=== PATIENT | female | born 1970 | race Caucasian/White ===

== ENCOUNTER 2019-12-18 13:04 | Emergency (ER) | payer OTHER, SELFPAY ==
--- NOTE | ~2019-12-18 | XR_ITS ---
EXAMINATION: XR chest 1V EXAM DATE: 12/18/2019 15:36 INDICATION: Weakness, dizziness. Nausea. TECHNIQUE: Portable AP frontal chest x-ray was obtained. There is no prior study for comparison. FINDINGS: The lungs are clear. There are no pleural effusions. The cardiomediastinal silhouette is within normal limits. There is no pneumothorax suspected. The bones and soft tissues are unremarkab le. IMPRESSION: No acute cardiopulmonary findings. Reviewed, dictated and finalized at location A.
--- NOTE | ~2019-12-18 | CT_ITS ---
EXAMINATION: CT brain wo con EXAM DATE: 12/18/2019 15:32 INDICATION: Weakness and dizziness. Nausea and fall. TECHNIQUE: Spiral CT of the head was performed without contrast. Axial, coronal and sagittal images were reviewed. The dose-length product (DLP) for this examination was 605.33 mGy-cm. The exposure w as tailored according to patient size, and iterative reconstruction (ASIR) was used as additional dos e reduction technique. There is no prior study for comparison. FINDINGS: There is no acute intraparenchymal hemorrhage. No evidence of intraparenchymal brain mass lesion. No evidence of acute infarction. There is no mass effect or midline shift. The ventricles are normal in size. There are no extra-axial collections. There are no acute calvarial fractures. T he orbits are unremarkable. Several scattered subcutaneous regions probably sebaceous cysts. The vis ualized sinuses and mastoid air cells are well aerated. There is a right-sided choroidal fissure cy st. IMPRESSION: 1. No acute intracranial findings. Reviewed, dictated and finalized at location A.
[2019-12-18 13:28] VITALS: BP 137/90; PULSE 85; RESP 16; TEMP 36.9; O2SAT 100
--- NOTE | 2019-12-18 13:34 | ECG_ITS ---
Measurements Intervals [place] Rate: 78 P: 56 AK: 162 QRS: 256 QRSD: 105 T: 41 QT: 389 QTc: 444 Interpretive Statements SINUS RHYTHM RIGHT AXIS DEVIATION LOW QRS VOLTAGE IN PRECORDIAL LEADS INCOMPLETE RIGHT BUNDLE BRANCH BLOCK MINIMAL Q WAVES- INFERIOR LEADS BORDERLINE T WAVE ABNORMALITY- ANTERIOR LEADS BASELINE ARTIFACT- I, II, AVR, AVL BORDERLINE ECG Electronically Signed On 12-18-2019 15:52:01 CDT by Randy Saez D.O.
[2019-12-18 13:49] LABS: Basophils Absolute Auto 0.1 K/mm3 (0.0-0.1); Basophils Percent Auto 0.5 % (0.2-1.2); Eosinophils Percent Auto 0.1 % (0-4.4); Hematocrit 37.1 % (37.0-47.0); Hemoglobin 13.3 g/dL (12.0-15.0); Immature Granulocyte Absolute 0.04 K/mm3 (0.00-0.031); Immature Granulocyte Percent A 0.3 % (0-0.5); Lymphocytes Absolute Auto 2.13 K/mm3 (0.9-3.2); Lymphocytes Percent Auto 18.5 % (18.3-44.2); Mean Corpuscular HGB Conc 35.8 g/dl (32-36); Mean Corpuscular Hemoglobin 31.4 pg (26-34); Mean Corpuscular Volume 87.7 fl (80-100); Mean Platelet Volume 9.8 fl (7.4-10.4); Monocytes Absolute Auto 0.6 K/mm3 (0.1-0.6); Monocytes Percent Auto 5.6 % (2.6-8.5); Neutrophils Absolute Auto 8.7 K/mm3 (1.3-6.7); Platelet Count Result 365 k/mm3 (150-375); Red Blood Count 4.23 M/mm3 (4.2-5.4); White Blood Count 11.5 K/mm3 (4.5-10.0)
[2019-12-18 14:02] LABS: Anion Gap 8 mmol/L (8-16); Blood Urea Nitrogen 7 mg/dL (7-17); Calcium 9.4 mg/dL (8.4-10.2); Carbon Dioxide 23 mmol/L (22-30); Chloride 95 mmol/L (98-107); Estimated Glomerular Filt Rate > 60; Glucose 109 mg/dL (65-105); Sodium 126 mmol/L (137-145)
[2019-12-18 14:14] LABS: Troponin I < 0.012 ng/mL (0.000-0.034)
[2019-12-18 14:40] VITALS: BP 129/85; BP 129/92; PULSE 78
[2019-12-18 14:41] VITALS: BP 124/86; PULSE 85
[2019-12-18 14:43] VITALS: PULSE 77
--- NOTE | 2019-12-18 14:54 | ED.SYNCOPE ---
HPI - Syncope General Chief Complaint: Syncope Stated Complaint: sent by MD for bloodwork Time Seen by Provider: 12/18/19 14:30 Source: patient Mode of arrival: ambulatory Limitations: no limitations History of Present Illness HPI narrative: This patient is 49 year old female with history of hypothyroid who presents for evaluation of syncopal episode. Patient states last night she developed nausea and dizziness. She reports she lean her head forward and then she woke up on the ground. Her son told her she had 10 seconds of loss of consciousness. She states when she was attempting to get up she became warm and diaphoretic. She states she felt fine until this morning. This morning she had an episode of nausea and she became warm and diaphoretic again. She denies chest pain, sob , palpitations. She denies having any symptoms now. Related Data Home Medications Medication Instructions Recorded Confirmed levothyroxine 12/18/19 Allergies Allergy/AdvReac Type Severity Reaction Status Date / Time No Known Allergies Allergy Verified 12/18/19 14:44 Review of Systems Review of Systems: All systems reviewed & are unremarkable except as noted in HPI and below Constitutional: Constitutional: Denies chills and Denies fever(s) Cardiovascular: Cardiovascular: Denies chest pain and Denies radiating jaw, neck or arm pain Respiratory: Respiratory: Denies cough, Denies dyspnea and Denies wheezing Gastrointestinal: Gastrointestinal: Denies abdominal pain, Reports nausea and Denies vomiting Neurologic: Reports syncope and Denies headache(s) PMFSH Past Medical History Medical History (Updated 12/18/19 @ 17:07 by Enma Rudd MD) Hypothyroid Surgical History Surgical History (Updated 12/18/19 @ 17:00 by Enma Rudd MD) No significant past surgical history Social History Social History (Updated 12/18/19 @ 14:59 by nEma Rudd MD) Smoking status: Current every day smoker Alcohol intake: current Substance use: never Gender identity (if verbalized by the patient): Female Exam Narrative: Exam Narrative: GENERAL: Well-appearing, well-nourished, and in no acute distress. HEAD: Normocephalic, atraumatic EYES: PERRLA and EOMI, conjunctiva clear without discharge THROAT:Mucous membranes moist NECK: Supple, without lymphadenopathy or mass RESPIRATORY: No respiratory distress, Airway patent, Respirations non-labored, Clear to auscultation without rales, rhonchi or wheeze HEART: Regular rate and rhythm. No murmur heard. Normal peripheral pulses. ABDOMEN: Soft, nontender, nondistended, normal active bowel sounds. No masses. No rebound or guarding, No organomegaly. EXTREMITIES: No edema, normal strength with full range of motion. SKIN: Warm, dry, normal color without rash NEURO: Alert and oriented x3. CN 2-12 grossly intact. No focal deficits. PSYCH: Normal mood and affect. Course Reevaluation(s) Reevaluation #1: I Discussed with patient labs show hyponatremia and possible low thyroid. She states she is taking her thyroid medication. I discussed the recommendation that she should be admitted. She states she understands the necessity and risk of not staying, but she is unable to stay at this time because she has a son at home. Date: 12/18/19 Time: 17:03 Consultations Consultation #1: I discussed case with Dr. Baer. He recommends admission for evaluation of syncope. He states patient is noncompliant Date: 12/18/19 Time: 17:00 Vital Signs Vital signs: Vital Signs Temperature 98.5 F 12/18/19 13:28 Pulse Rate 85 12/18/19 13:28 Respiratory Rate 16 12/18/19 13:28 Blood Pressure 137/90 12/18/19 13:28 Pulse Oximetry 100 12/18/19 13:28 Temperature 98.5 F 12/18/19 13:28 Pulse Rate 74 12/18/19 17:16 Respiratory Rate 20 12/18/19 17:16 Blood Pressure 136/93 H 12/18/19 17:16 Pulse Oximetry 100 12/18/19 17:16 MDM - Syncope Lab Data Attestati
[2019-12-18 15:21] LABS: Add Urine Microscopic? YES; Appearance Urine Cloudy (Clear); Bacteria Urine Trace /hpf; Bilirubin Urine Negative (Negative); Blood Urine Negative (Negative); Color Urine Yellow (Yellow); Glucose Urine UA Negative (Negative); Ketones Urine 1+ mg/dL (Negative); Leukocyte Esterase Ur Trace LEU/UL (Negative); Mucus Urine Rare /lpf; Nitrate Urine Negative (Negative); Protein Urine Negative (Negative); Specific Grav Ur 1.017 (1.001-1.035); Squamous Epithelial Cell Urine Many /hpf (Few); Urobilinogen Urine Negative mg/dL (<2.0); WBC Urine 0-3 /hpf
[2019-12-18] MEDS: ONDANSETRON INJ 4 MG/2 ML VIAL IV PUSH (15:40)
[2019-12-18] MEDS: SODIUM CHLORIDE 0.9% IV 1,000 ML 999 ML IV CONT (15:40)
[2019-12-18 17:08] LABS: Free T4 Free Thyroxine Reflex 1.05 ng/dL (0.78-2.19)
[2019-12-18 17:16] VITALS: BP 136/93; PULSE 74; RESP 20; O2SAT 100
[2019-12-18 18:03] LABS: Total Triiodothyronine (T3) 0.53 NG/ML (0.97-1.69)
== END 2019-12-18 17:19 | disposition left against medical advice (07) ==
PROVIDERS: Emergency Medicine; Emergency Provider General Practice; PCP Family Medicine
DX: R55 Syncope and collapse (principal); E87.1 Hypo-osmolality and hyponatremia; E03.9 Hypothyroidism, unspecified; F17.200 Nicotine dependence, unspecified, uncomplicated; I45.10 Unspecified right bundle-branch block; R94.31 Abnormal electrocardiogram [ECG] [EKG]
CPT/HCPCS: 36415; 70450; 71045; 80048; 81001; 81025; 83735; 84439; 84443; 84480; 84484; 85025; 93005; 96361; 96374; 99284; J2405; J7030

== ENCOUNTER → 2021-03-03 15:53 | Outpatient (CLI) | payer OTHER, SELFPAY ==
--- NOTE | ~2021-03-03 | MM_ITS ---
EXAMINATION: MM screening monica BI w uzma HISTORY: Screening TECHNIQUE: Craniocaudal and mediolateral oblique 3-D tomosynthesis images were obtained and synthetic 2-D images were generated. CAD analysis was submitted and interpreted. COMPARISON: No prior mammogram is available for comparison at this institution. BREAST PARENCHYMAL COMPOSITION: There are scattered areas of fibroglandular density. FINDINGS: There are bilateral breast asymmetries in the upper inner quadrant of the right breast and lower inner quadrant of the left breast. There are no suspicious calcifications. No architectural dis tortion. IMPRESSION: 1. Bilateral breast asymmetries. 2. Additional mammographic views and possible breast ultrasound are recommended. BI-RADS Category 0: Incomplete: Needs additional imaging evaluation. Reviewed, dictated and finalized at location A. IMPRESSION: 1. Bilateral breast asymmetries. 2. Additional mammographic views and possible breast ultrasound are recommended . BI-RADS Category 0: Incomplete: Needs additional imaging evaluation.
== END ==
PROVIDERS: Visit Provider Student in an Organized Health Care Education/Training Program
DX: Z12.31 Encounter for screening mammogram for malignant neoplasm of breast (principal); R92.8 Other abnormal and inconclusive findings on diagnostic imaging of breast
CPT/HCPCS: 77063; 77067

== ENCOUNTER → 2021-08-02 07:43 | Outpatient (CLI) | payer OTHER, SELFPAY ==
--- NOTE | ~2021-08-02 | MMUS_ITS ---
EXAMINATION: MM diagnostic monica BI w uzma, US breast BI limited HISTORY: Follow-up breast asymmetries TECHNIQUE: Additional 3-D tomosynthesis images of the breasts were performed and synthetic 2-D images were generated. CAD analysis was submitted and interpreted. High resolution complete bilateral breas t ultrasound was performed. COMPARISON: 03/03/2021 BREAST PARENCHYMAL COMPOSITION: The breasts are heterogenously dense, which may obscure small masses FINDINGS: MAMMOGRAPHIC FINDINGS: There are no suspicious masses, calcifications or architectural distortion in either breast to sugges t malignancy. ULTRASOUND: Complete bilateral US of all 4 quadrants of the breasts and retroareolar region was reviewed. Right breast ultrasound: Normal heterogeneous echotexture without focal solid or cystic mass. Left breast ultrasound: At 11:00, 5 cm from the nipple there is an oval circumscribed hypoechoic mass measuring 6 mm with parallel orientation, no internal vascularity and no significant posterior featu res, likely benign. IMPRESSION: 1. No evidence for malignancy in the right breast. Probably benign 6 mm left breast mass at 11:00, 5 cm from the nipple. 2. Recommend 6 month follow-up limited left breast ultrasound BI-RADS category 3, probably benign findings. Reviewed, dictated and finalized at location A. IMPRESSION: 1. No evidence for malignancy in the right breast. Probably benign 6 mm left br east mass at 11:00, 5 cm from the nipple. 2. Recommend 6 month follow-up limited left breast ultrasound BI-RADS category 3, probably benign findings.
== END ==
PROVIDERS: PCP Student in an Organized Health Care Education/Training Program; Visit Provider Student in an Organized Health Care Education/Training Program
DX: R92.8 Other abnormal and inconclusive findings on diagnostic imaging of breast (principal)
CPT/HCPCS: 76642; 77062; 77066; G0279

== ENCOUNTER 2021-08-17 10:26 | Emergency (ER) | payer OTHER, SELFPAY ==
[2021-08-17 10:34] VITALS: BP 135/85; PULSE 90; RESP 18; TEMP 36.8; O2SAT 100
--- NOTE | 2021-08-17 12:18 | ED.DENTAL ---
HPI - Dental/Oral General Chief complaint: Dental/Oral Stated complaint: toothache Time Seen by Provider: 08/17/21 12:03 Source: patient History of Present Illness HPI Narrative: Patient presents with right upper molar pain. Been present for approximately 24 hours she has a dentist appointment tomorrow morning she woke up and noticed a lot of swelling in her face she was unsure what to do so she came to the ER for further evaluation. She denies any fevers or difficulty swallowing denies any cough or congestion. Denies any nausea vomiting or diarrhea. Her pain is primarily in her right upper jaw achy, constant worse with moving her jaw, radiates across her face. Related Data Home Medications Medication Instructions Recorded Confirmed levothyroxine 300 mcg PO Q48H 08/17/21 08/17/21 Allergies Allergy/AdvReac Type Severity Reaction Status Date / Time No Known Allergies Allergy Verified 08/17/21 11:12 Review of Systems Review of Systems: CONSTITUTIONAL: Denies fever, chills, or sweats. EYES: Denies visual changes, redness, or discharge. ENT: Denies rhinorrhea, congestion, sore throat, or otalgia. CARDIOVASCULAR: Denies chest pain, palpitations, or edema. RESPIRATORY: Denies cough or dyspnea. GASTROINTESTINAL: Denies abdominal pain, nausea, vomiting, or diarrhea. GENITOURINARY: Denies dysuria or hematuria. SKIN: Denies rash or itching. MUSCULOSKELETAL: Denies back pain, joint pain, or myalgia. NEUROLOGIC: Denies headache, numbness, dizziness, or weakness. PSYCHIATRIC: Denies anxiety or depression. All systems reviewed & are unremarkable except as noted in HPI and below PMFSH Past Medical History Medical History (Updated 08/17/21 @ 12:22 by David Ghosh MD) Dental abscess Hypothyroid Surgical History Surgical History No significant past surgical history Social History Social History Smoking status: Current every day smoker Alcohol intake: current Substance use: never Gender identity (if verbalized by the patient): Female Exam Narrative: GENERAL: Well-appearing, well-nourished, and in no acute distress. HEAD: Normocephalic, atraumatic. EYES: PERRLA and EOMI. ENT: Nares clear, no rhinorrhea or epistaxis. Mucous membranes moist. Fractured teeth on the right upper molars with tenderness palpation no focal fluid collections no purulent drainage there is facial edema noted on the right face. NECK: Supple. No masses. No JVD EXTREMITIES: Normal range of motion. No edema. SKIN: Warm, dry, no rash. NEURO: No focal deficits. Alert and oriented x3. PSYCH: Normal mood and affect. Course Vital Signs Vital signs: Vital Signs Temperature 36.8 C 08/17/21 10:34 Pulse Rate 90 08/17/21 10:34 Respiratory Rate 18 08/17/21 10:34 Blood Pressure 135/85 08/17/21 10:34 Pulse Oximetry 100 08/17/21 10:34 Temperature 36.8 C 08/17/21 10:34 Pulse Rate 93 08/17/21 12:50 Respiratory Rate 18 08/17/21 12:50 Blood Pressure 147/95 H 08/17/21 12:50 Pulse Oximetry 100 08/17/21 12:50 MDM - Dental/Oral MDM Narrative Medical decision making narrative: H&P as above, vss, pt looks clinically well, exam with facial edema and tenderness on the right upper molars, labs/img considered, symptomatic relief available as needed, on reevaluation pt continues to looks clinically well. Suspect dental abscess, dns severe sepsis, necrotizing soft tissue infection, airway compromise. plan to tx/monitor as op w/ pcm f/u findings/plan discussed with pt, pt agree/comfortable with plan, return precautions given Discharge Plan Discharge Clinical Impression: Dental abscess Patient Disposition: Home, Self-Care Condition: Improved Instructions: Antibiotic Form, Dental Abscess (ED) Additional Instructions: Please return if your symptoms worsen or fail to improve. If you develop a fever, can n
[2021-08-17 12:50] VITALS: BP 147/95; PULSE 93; RESP 18; O2SAT 100
== END 2021-08-17 12:55 | disposition home or self-care (01) ==
PROVIDERS: Emergency Provider Emergency Medicine
DX: K04.7 Periapical abscess without sinus (principal); E03.9 Hypothyroidism, unspecified
CPT/HCPCS: 99283

== ENCOUNTER → 2022-10-10 12:41 | Outpatient (CLI) | payer OTHER, SELFPAY ==
--- NOTE | ~2022-10-10 | US_ITS ---
EXAMINATION: US breast LT limited HISTORY: Overdue follow-up for probably benign left breast mass. TECHNIQUE: Limited left breast ultrasound is performed. FINDINGS: There is a stable 7 mm x 3 mm oval, circumscribed, parallel, hypoechoic mass with no machine setter sheet metal ior features or internal vascularity at the 11:00 location 5 cm from the nipple. There has been no delgado spicious interval change. IMPRESSION: 1. Stable, probably benign left breast mass. Given 12 months of interval stability, follow-up targete d ultrasound in 12 months is recommended. 2. Of note, patient is overdue for screening mammography. BI-RADS category 3, probably benign findings. Reviewed, dictated and finalized at location A. IMPRESSION: 1. Stable, probably benign left breast mass. Given 12 months of interval stabil ity, follow-up targeted ultrasound in 12 months is recommended. 2. Of note, patient is overdue for screening mammography. BI-RADS category 3, probably benign findings.
== END ==
PROVIDERS: PCP Student in an Organized Health Care Education/Training Program; Visit Provider Student in an Organized Health Care Education/Training Program
DX: R92.8 Other abnormal and inconclusive findings on diagnostic imaging of breast (principal)
CPT/HCPCS: 76642

== ENCOUNTER → 2022-12-08 15:57 | Outpatient (CLI) | payer OTHER, SELFPAY ==
--- NOTE | ~2022-12-08 | MM_ITS ---
EXAMINATION: MM screening monica BI w uzma HISTORY: Screening mammogram TECHNIQUE: Craniocaudal and mediolateral oblique 3-D tomosynthesis images were obtained and synthetic 2-D images were generated. CAD analysis was submitted and interpreted. COMPARISON: 08/02/2021, 03/03/2021 BREAST PARENCHYMAL COMPOSITION:The breasts are extremely dense, which lowers the sensitivity of mammo graphy. FINDINGS: No suspicious mass, calcification, or architectural distortion are identified in either aman ast to suggest malignancy. There has been no suspicious interval change. IMPRESSION: No mammographic evidence of malignancy. Recommend routine screening mammography in one year. BI-RADS Category 1: Negative Reviewed, dictated and finalized at location .
== END ==
PROVIDERS: PCP Student in an Organized Health Care Education/Training Program; Visit Provider Student in an Organized Health Care Education/Training Program
DX: Z12.31 Encounter for screening mammogram for malignant neoplasm of breast (principal)
CPT/HCPCS: 77063; 77067

== ENCOUNTER 2023-10-23 08:37 | Emergency (ER) | payer OTHER, SELFPAY ==
--- NOTE | ~2023-10-23 | XR_ITS ---
XR ribs RT 2V Ordering provider: Shaq Carrero APRN History: . right lower lateral rib pain x yesterday . Comparison: December 18, 2019 FINDINGS: BONES: No acute right rib fracture or fracture of the visualized osseous structures. LUNGS: No effusions or infiltrates. No pneumothorax. SOFT TISSUES: Normal. IMPRESSION: No right rib fracture (Note: subtle/nondisplaced rib fractures can be occult on plain films and if th ere is continued clinical suspicion for rib fracture, recommend follow up CT chest). Reviewed, dictated and finalized at location A. IMPRESSION: No right rib fracture (Note: subtle/nondisplaced rib fractures can be occult on plain films and if there is continued clinical suspicion for rib fracture, rec ommend follow up CT chest).
--- NOTE | 2023-10-23 08:41 | ED.BACK ---
HPI - Back Pain/Injury General Chief Complaint: Unspecified Stated Complaint: Right Side Flank Pain Time Seen by Provider: 10/23/23 08:39 Source: patient Mode of arrival: ambulatory Limitations: no limitations History of Present Illness HPI Narrative: Carla is a 53-year-old female patient presenting to the clinic today with complaints of right-sided rib pain x 1 day. She reports that yesterday she was reaching over a cart and got her right lower lateral ribs caught on the cart. States she is having pain over the right lower lateral ribs. Pain is worse with movement. When she is sitting still rates her pain a 1-2 and when she is moving it is a 6 or 7/10. Had taken Advil yesterday for pain but has not taken anything yet this morning. Related Data Home Medications Medication Instructions Recorded Confirmed levothyroxine 300 mcg tablet 300 mcg PO Q48H 08/17/21 10/23/23 Allergies Allergy/AdvReac Type Severity Reaction Status Date / Time No Known Allergies Allergy Verified 10/23/23 08:56 Review of Systems Review of Systems: Pertinent positives per HPI. Patient denies any fever, chills, rash, headache, visual changes, dizziness, cough, runny nose, sore throat, shortness of breath, chest pain, palpitations, nausea, vomiting, diarrhea, constipation, abdominal pain, or any urinary issues. PMFSH Past Medical History Medical History Dental abscess Hypothyroid Screening mammogram, encounter for Surgical History Surgical History No significant past surgical history Social History Social History Smoking status: Current every day smoker Alcohol intake: current Substance use: never Gender identity (if verbalized by the patient): Female Comments At the time of my signature, I reviewed and agree with the nursing past medical, surgical, social, and family history. There is no relevant family history pertinent to the patient complaint. Exam Narrative: General: Well-developed, well nourished, in no apparent distress. Head: Normocephalic, atraumatic. Cardio: Regular rate and rhythm, s1 and s2 normal, no murmur appreciated. Resp: Clear to auscultation bilaterally, no rhonchi, rales, wheezing or rubs. Abdomen: Soft, pliable, bowel sounds present in all quadrants, non-tender to palpation, no organomegly, no CVAT tenderness. Musculoskeletal: No deformity, even rise and fall of the chest wall with respirations, no bruising or swelling noted, tender to palpation over the right lower lateral rib, pain exacerbated with movement of the right arm, grossly normal range of motion, muscle strength strong and equal, peripheral pulse strong, no edema, no cyanosis, normal gait and station Course Course Emergency Course: Portions of this record may have been created with voice recognition software. Level of Care: Express Care Visit Vital Signs Vital signs: Vital Signs Temperature 37.2 C 10/23/23 08:49 Pulse Rate 78 10/23/23 08:49 Respiratory Rate 20 10/23/23 08:49 Blood Pressure 152/97 H 10/23/23 08:49 Pulse Oximetry 98 10/23/23 08:49 Oxygen Delivery Room Air 10/23/23 08:49 Temperature 37.2 C 10/23/23 08:49 Pulse Rate 78 10/23/23 08:49 Respiratory Rate 20 10/23/23 08:49 Blood Pressure 152/97 H 10/23/23 08:49 Pulse Oximetry 98 10/23/23 08:49 Oxygen Delivery Room Air 10/23/23 08:49 Vital signs reviewed MDM - Back Pain/Injury MDM Narrative Medical decision making narrative: At the time of visit patient is resting comfortably on the exam table. Patient appears to be nontoxic. Labs: UA shows a trace of leukocytes without blood or protein. Diagnostics: X-ray of the right ribs was performed and was negative for any obvious rib fracture, malalignment, or pneumothorax. Plan: I suspect patient
[2023-10-23 08:49] VITALS: BP 152/97; PULSE 78; RESP 20; TEMP 37.2; O2SAT 98
[2023-10-23 09:00] LABS: EDUAAPPEAR Cloudy; EDUABILI Negative; EDUABLOOD Negative; EDUACOLOR1 Yellow; EDUAGLUCOSE Negative; EDUAKETONE Negative; EDUALEUKO Trace; EDUANITRATE Negative; EDUAPH 6.5; EDUAPROTEIN Negative; EDUASPGRAVITY 1.015; EDUAUROBILI 0.2
== END 2023-10-23 09:53 | disposition home or self-care (01) ==
PROVIDERS: Emergency Provider Nurse Practitioner Family; PCP Student in an Organized Health Care Education/Training Program
DX: R07.81 Pleurodynia (principal); F17.200 Nicotine dependence, unspecified, uncomplicated; E03.9 Hypothyroidism, unspecified
CPT/HCPCS: 71100; 81003; 99213; G0463

== ENCOUNTER 2024-04-11 18:41 | Emergency (ER) | payer OTHER, SELFPAY ==
[2024-04-11 18:50] VITALS: BP 190/103; PULSE 82; RESP 16; TEMP 36.4; O2SAT 100
--- NOTE | 2024-04-11 19:18 | ED_ITS ---
HPI - Dental/Oral General Chief complaint: Dental/Oral Stated complaint: right side tooth pain Time Seen by Provider: 04/11/24 18:44 Source: patient Mode of arrival: ambulatory Limitations: no limitations History of Present Illness HPI Narrative: Patient is a 54-year-old female who presents with right lower dental pain and swelling. Patient states she is trying to get into a dentist. Denies any fever, chills, nausea, vomiting, diarrhea MD Complaint: tooth pain Location: Tooth # (28/29) Related Data Home Medications ?Medication ?Instructions ?Recorded ?Confirmed ?Last Taken ?Type levothyroxine 300 mcg tablet 300 mcg PO Q48H 08/17/21 04/11/24 08/17/21 History Allergies Allergy/AdvReac Type Severity Reaction Status Date / Time No Known Allergies Allergy Verified 04/11/24 18:47 Review of Systems Review of Systems: All systems reviewed & are unremarkable except as noted in HPI and below Constitutional: Constitutional: Denies body ache(s), Denies fever(s), Denies headache(s), Denies malaise and Denies weakness Eyes: Eyes: Denies loss of vision ENT: Denies otalgia, Reports facial pain (jaw), Denies headache(s), Denies nasal discharge, Denies sinus pain and Denies sore throat Cardiovascular: Cardiovascular: Denies chest pain, Denies irregular heart rhythm and Denies dyspnea Respiratory: Respiratory: Denies dyspnea Gastrointestinal: Gastrointestinal: Denies abdominal pain, Denies melena, Denies hematochezia, Denies diarrhea, Denies nausea and Denies vomiting Musculoskeletal: Musculoskeletal: Denies back pain, Denies myalgias and Denies arthralgias Integumentary/Breasts: Skin/Breast: Denies pruritus and Denies rash Neurologic: Denies headache(s), Denies loss of vision and Denies weakness Psychiatric: Psychiatric: Reports no additional psychiatric complaints PMFSH Past Medical History Medical History Screening mammogram, encounter for Dental abscess Hypothyroid Surgical History Surgical History No significant past surgical history Social History Social History Smoking status: Current every day smoker Alcohol intake: current Substance use: never Gender identity (if verbalized by the patient): Female Comments At time of signature, agree with nursing past medical, surgical, social and family history. There is no relevant family history pertinent to the presenting complaint. Exam Const: General: cooperative, healthy appearing, comfortable, no acute distress and well nourished Nutritional Appearance: well nourished Orientation/consciousness: patient oriented x3 Limitations: no limitations HENMT: Head: normal to inspection, normocephalic and atraumatic Ears: hearing grossly normal bilaterally, external ears normal, TM's normal bilaterall y and mastoids normal bilaterally Face/Nose/Sinus: Normal external nose present, normal facial exam and face symmetric Face and sinus: normal facial exam and face symmetric Mouth: Yes Normal oral and palatal mucosa present, Yes lip normal, Yes tongue normal, Yes Normal salivary glands and ducts present and Yes moist mucous membranes Teeth and gingiva: abnormal tooth and associated gingiva lower right second bicuspid tender and dentin fractured and poor dentition Eyes: General: appearance normal, both eyes and all related structures Alignment and Position: alignment normal and position normal Periorbital: periorbital findings normal Eyelids: eyelids normal Pupils: Equal, round and reactive pupils present EOM: EOMs intact bilaterally Neck: Neck: normal visual inspection, full ROM, no lymphadenopathy and supple Chest: Chest palpation & inspection: normal inspection of the chest Resp: Effort & Inspection: normal respiratory effort and able to speak in complete sentences Auscultation: clear to auscultation bilaterally Cardio: Rate: regular rate Rhythm: regular rhythm Heart sounds: S1 normal heart sound present and S2 normal heart sound present GI: Inspection: normal to inspection Skin: General skin exam: normal color and no rashes or lesions noted Neuro: General: patient oriented x3 and moves all extremities Cranial nerves: Yes Equal, round and reactive pupils present Speech: normal speech Gait exam (Neuro): Normal gait present Extrem: General: normal to inspection, full ROM and no edema Psych: Appearance: grossly normal and well kempt Mental Status: mental status grossly normal Speech and movement: Normal speech and movement present Affect: normal affect Attitude: cooperative Thought process: Normal thought process present Course Course Emergency Course: Patient is aware of diagnosis, understands and agrees to treatment plan. Anticipatory guidance given. Patient agrees to follow-up as directed and is aware of reasons to seek care at the emergency department. Portions of this record may have been created with voice recognition software Level of Care: Express Care Visit Vital Signs Vital signs: Vital Signs Temperature 36.4 C 04/11/24 18:50 Pulse Rate 82 04/11/24 18:50 Respiratory Rate 16 04/11/24 18:50 Blood Pressure 190/103 H 04/11/24 18:50 Pulse Oximetry 100 04/11/24 18:50 Oxygen Delivery Room Air 04/11/24 18:50 Temperature 36.4 C 04/11/24 18:50 Pulse Rate 82 04/11/24 18:50 Respiratory Rate 16 04/11/24 18:50 Blood Pressure 190/103 H 04/11/24 18:50 Pulse Oximetry 100 04/11/24 18:50 Oxygen Delivery Room Air 04/11/24 18:50 Reviewed MDM - Dental/Oral MDM Narrative Medical decision making narrative: Patients pain and complaint coupled with physical findings are consistant with dentalgia. There are no focal signs of space occupying lesions that are compromising to the airway; no dysphagia, odynophagia, dysphonia, or dyspnea. No uvular deviation or soft palate edema. Patient is non-toxic appearing. The floor of the mouth is soft with no signs of Bebo's Angina; no induration below mandible, no neck pain. Patient is without trismus or drooling and able to swallow secretions. Patient is felt appropriate for discharge home with dental follow up. Differential Diagnosis Differential diagnosis: Likely gingival abscess, dental caries, toothache, dental abscess and fracture of tooth Medical Records Attestation: I reviewed the patient's medical records. Discharge Plan Discharge Clinical Impression: Dental abscess Patient Disposition: Home, Self-Care Condition: Stable Instructions: Dental Abscess (ED) Additional Instructions: Take antibiotic until it's gone. Brushing teeth at least twice daily with gentle flossing. Avoid temperature extremes---when you eat. Salt gargle to rinse your mouth after every meal You may apply ice to the face to reduce pain/swelling. For pain, you may take: Tylenol 650-1000mg by mouth every 4-6 hours. Do not exceed 4000mg in 24 hours. Advil (Ibuprofen) 600 mg by mouth every 6 hours. Do not exceed 2400mg in 24 hours. 8 AM: Tylenol 11 AM: Ibuprofen 2 PM: Tylenol 5 PM: Ibuprofen 8 PM: Tylenol 11 PM: Ibuprofen 2 AM: Tylenol 5 AM: Ibuprofen Also, recommend regular dental check up one-two times a year to prevent tooth decay and other periodontal disease. Follow-up with the dentist as soon as possible--see the list provided Your blood pressure was elevated above 120/80 today at Urgent Care. This puts you above the threshold for follow up visit with a primary care provider. High blood pressure does not usually cause any symptoms, however it may lead to kidney failure, stroke, heart disease just to name a few if untreated . Many people are anxious when seeing a provider or nurse. As a result, you are not diagnosed with hypertension at this time unless your blood pressure is persistently high at two office visits at least one week apart. Some things that can help lower blood pressure are lifestyle modifications, such as light exercise, decreased salt in diet, and weight loss. It is important to follow up with a PCP about this within 1 week. Patient Language: [place] Citizen Prescriptions: New amoxicillin-pot clavulanate 875-125 mg tablet 1 tablet PO Q12H 14 Days Qty: 28 0RF No Action levothyroxine 300 mcg Tablet 300 mcg PO Q48H Rx Instructions: takes 300mcg every other day alternating with 150mcg on day in between. Follow-up/Referrals: Lamont Potts MD [Primary Care Provider] - Stand Alone Forms: Work/School Release IP Time of Disposition: 19:54
== END 2024-04-11 20:03 | disposition home or self-care (01) ==
PROVIDERS: Emergency Provider Nurse Practitioner Family; PCP Student in an Organized Health Care Education/Training Program
DX: K04.7 Periapical abscess without sinus (principal); F17.200 Nicotine dependence, unspecified, uncomplicated; E03.9 Hypothyroidism, unspecified
CPT/HCPCS: 99213; G0463

== ENCOUNTER 2024-05-04 18:11 | Emergency (ER) | payer OTHER, SELFPAY ==
--- NOTE | ~2024-05-04 | CT_ITS ---
History: Fall. Additional information is unknown to me the time of this dictation PROCEDURE: CT cervical spine without intravenous contrast. COMPARISON: None TECHNIQUE: Multiple contiguous axial images of the cervical spine and facial bones were performed without the ad ministration of intravenous contrast. DLP: 134 mGy-cm FINDINGS: Straightening of the normal curvature of the cervical spine is identified, likely muscular in origin. Moderate facet arthropathy is identified throughout the cervical spine. No acute fractures are present. The bilateral lung apices are unremarkable. No soft tissue abnormality is present. The airway is patent. No acute facial bone fracture is identified. Impression: No acute fracture within the facial bones or the cervical spine.. Reviewed, dictated and finalized at location A. SSION LIAISON Impression: No acute fracture within the facial bones or the cervical spine..
--- NOTE | ~2024-05-04 | CT_ITS ---
History: Fall. Additional information is unknown at the time of this dictation. PROCEDURE: CT head without contrast. COMPARISON: 12/18/2019 TECHNIQUE: Axial imaging of the head performed from the skull base to the vertex without IV contrast. Sagittal a nd coronal reformations obtained. DLP: 681 mGy-cm FINDINGS: The ventricles are normal in size, shape and position. There is no mass, mass effect or midline shift. There is no abnormal extra-axial fluid collection or intracranial hemorrhage. Visualized paranasal sinuses are clear. The mastoid air cells are well aerated. No acute displaced fractures within the overlying cranium. Right posterior parietal scalp hematoma. Impression: No acute intracranial hemorrhage or suspicious mass effect. Reviewed, dictated and finalized at location A. Y WORKER Impression: No acute intracranial hemorrhage or suspicious mass effect.
--- OUTSIDE RECORDS SUMMARY | 2024-05-04 18:13 | XMS_ITS | Clinical Summary ---
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 Gender Identity Not on file Sexual Orientation Not on file Plan of Treatment Health Maintenance Due Date Last Done Comments Hepatitis C Virus (HCV) Screening 1969 TdaP Immunization 1969 Hepatitis B Immunization (1 of 3 - 19+ 3-dose series) 02/21/1988 Pap Smear 1990 Cervical Cancer Screening (CCS) 1999 HPV/Cotest 1999 Colonoscopy 2014 Colorectal Cancer Screening 2014 Cologuard 2019 Immunochemical Fecal Occult Blood 2019 Mammogram 2019 Pneumococcal Immunization (50+ years) (1 of 1 - PCV) 2019 Zoster Immunization (1 of 2) 2019 Influenza Immunization (#1) 12/10/202312/09, 12/20/2018, 01/10/2018, Additional history exists SARS-COV-2 Immunization ( season) 2023 Respiratory Syncytial Virus (RSV) Immunization (Adult) (1 - 1-dose 75+ series) 02/21/2044 Meningococcal Immunization (ACWY) Aged Out No longer eligible based on patient's age to complete this topic Pneumococcal Immunization Combined Aged Out No longer eligible based on patient's age to complete this topic Rotavirus Immunization Aged Out No lo nger eligible based on patient's age to complete this topic Care Teams Land Surveying Party Chief Relationship Specialty Start Date End Date Lamont Potts MD Consulting Physician Obstetrics & Gynecology 01/19/21
[2024-05-04 18:51] VITALS: BP 176/102; PULSE 99; RESP 20; TEMP 36.7; O2SAT 100
[2024-05-04] MEDS: HYDROcodone/acetaminophen (*CRX) 5-325 MG TABLET 1 TAB PO (19:06)
--- NOTE | 2024-05-04 21:23 | ED_ITS ---
HPI - Fall General Chief Complaint: Fall Stated Complaint: fell down 3-4 steps Time Seen by Provider: 05/04/24 18:30 Focused HPI: Patient is a 54-year-old female who presents to the ER after a fall at home. She reports she tripped over her son's backpack and fell down approximately 4 stairs. Patient reports she hit the back of her head on a brick wall and her right lower chin on ?something else. She is unsure whether not she lost consciousness, reports feeling ?dazed. Patient reports she has had a right lower molar dental abscess, but thinks she hit it on something today and it has gotten worse. She denies any back pain, abdominal pain, one-sided numbness/tingling/weakness, chest pain, extremity pain, saddle anesthesia. GENERAL: Well-appearing, well-nourished, and in mild distress d/t pain. HEAD: Normocephalic, palpable lump on the back of patient's head. Right lower jaw swelling. CHEST: Clear to auscultation. ?No respiratory distress. HEART: Regular rate and rhythm.? NEURO: ?Alert and oriented x3. Patient screened in triage and initial orders placed.? ?Additional care and disposition to be based upon?diagnostic testing and treatment. Related Data Home Medications ?Medication ?Instructions ?Recorded ?Confirmed ?Last Taken ?Type levothyroxine 300 mcg tablet 300 mcg PO Q48H 08/17/21 04/11/24 08/17/21 History Allergies Allergy/AdvReac Type Severity Reaction Status Date / Time No Known Allergies Allergy Verified 05/04/24 18:58 Review of Systems Review of Systems: All systems reviewed & are unremarkable except as noted in HPI and below PMFSH Past Medical History Medical History Screening mammogram, encounter for Dental abscess Hypothyroid Surgical History Surgical History No significant past surgical history Social History Social History Smoking status: Current every day smoker Alcohol intake: current Substance use: never Gender identity (if verbalized by the patient): Female Exam Narrative: GENERAL: Well appearing, well-nourished, non-toxic, in no acute distress. HEAD: Normocephalic, palpable lump on the back of patient's head. Right lower jaw swelling. NECK: Supple. No adenopathy, no masses. RESPIRATORY: Airway patent, respirations nonlabored. Clear to auscultation bilaterally, no rales, rhonchi, wheezing. CARDIOVASCULAR: Regular rate and rhythm without murmurs, rubs, or gallops. Peripheral pulses 2+ and equal bilaterally. ABDOMINAL: Soft, nontender, nondistended, no hepatosplenomegaly. Normoactive BS. MUSCULOSKELETAL: Moves all extremities. Strength/ROM intact without gross deformities. SKIN: Warm, dry, normal color. No rashes. NEURO: A&O X3. Speech clear. Cranial nerves II-XII grossly intact. No ataxic movements. PSYCHIATRIC: Appropriate mood and affect. Normal interaction. Course Vital Signs Vital signs: Vital Signs Temperature 36.7 C 05/04/24 18:51 Pulse Rate 99 05/04/24 18:51 Respiratory Rate 20 05/04/24 18:51 Blood Pressure 176/102 H 05/04/24 18:51 Pulse Oximetry 100 05/04/24 18:51 Oxygen Delivery Room Air 05/04/24 18:51 Temperature 36.7 C 05/04/24 18:51 Pulse Rate 99 05/04/24 18:51 Respiratory Rate 20 05/04/24 18:51 Blood Pressure 176/102 H 05/04/24 18:51 Pulse Oximetry 100 05/04/24 18:51 Oxygen Delivery Room Air 05/04/24 18:51 MDM - Fall MDM Narrative Medical decision making narrative: Patient is a 54-year-old female who presents to the ER after a fall at home. She reports she tripped over her son's backpack and fell down approximately 4 stairs. Patient reports she hit the back of her head on a brick wall and her right lower chin on ?something else. She is unsure whether not she lost consciousness, reports feeling ?dazed. Patient reports she has had a right lower molar dental abscess, but thinks she hit it on something today and it has gotten worse. She denies any back pain, abdominal pain, one-sided numbness/ting ling/weakness, chest pain, extremity pain, saddle anesthesia. Labs Ordered: None necessary Imaging Ordered: CT head, CT cervical spine and facial scan Medications Ordered: [place] 5-325mg PO Results: Patient's CT head indicated The ventricles are normal in size, shape and position. There is no mass, mass effect or midline shift. There is no abnormal extra-axial fluid collection or intracranial hemorrhage. Visualized paranasal sinuses are clear. The mastoid air cells are well aerated. No acute displaced fractures within the overlying cranium. Right posterior parietal scalp hematoma. CT facial and cervical spine scan indicated Straightening of the normal curvature of the cervical spine is identified, likely muscular in origin. Moderate facet arthropathy is identified throughout the cervical spine. No acute fractures are present. The bilateral lung apices are unremarkable. No soft tissue abnormality is present. The airway is patent. No acute facial bone fracture is identified. Diagnosis: Concussion with loss of consciousness. Patient Education/Shared MDM: Results shared with patient. She endorses significant pain relief following [place] administration. Patient's right lower molar is infected so she will be discharged home with an antibiotic and advised follow-up with a dentist. She will be advised to take Tylenol and ibuprofen for pain control, along with viscous lidocaine. Patient given strict return precautions. She should follow-up with her primary care provider soon as possible. Patient verbalized understanding and is in agreement with plan. Vital signs stable at time of discharge. All questions answered. Differential Diagnosis Differential diagnosis: Likely concussion without loss of consciousness and other (Abscessed tooth, subdural hematoma) Imaging Data Attestation: I personally reviewed and interpreted this imaging study as follows: Radiologist's impression: Impressions Head CT 05/04/24 20:27 Impression: No acute intracranial hemorrhage or suspicious mass effect. Head/Cervical Spine/Facial Bones CT 05/04/24 20:30 Impression: No acute fracture within the facial bones or the cervical spine.. Discharge Plan Discharge Clinical Impression: Dental abscess, Concussion with loss of consciousness Patient Disposition: Home, Self-Care Condition: Stable Instructions: Antibiotic Form, Dental Abscess (ED), Concussion (ED) Additional Instructions: Please return to the ER with an worsening symptoms. Follow-up with primary care provider in the next 2-3 days. Take all medications as prescribed. Patient Language: Macedonian Prescriptions: New amoxicillin-pot clavulanate 875-125 mg tablet 1 tablet PO Q12H Qty: 20 0RF lidocaine HCl [Lidocaine Viscous] 2 % solution 1 applic mucous membrane QID PRN (Reason: pain) Qty: 300 0RF No Action amoxicillin-pot clavulanate 875-125 mg tablet 1 tablet PO Q12H 14 Days Qty: 28 0RF levothyroxine 300 mcg Tablet 300 mcg PO Q48H Rx Instructions: takes 300mcg every other day alternating with 150mcg on day in between. Follow-up/Referrals: PHYSICIAN,MARKETING PROFESSIONAL [Primary Care Provider] -
[2024-05-04 21:45] VITALS: BP 154/96; PULSE 78; RESP 18; O2SAT 99
--- OUTSIDE RECORDS SUMMARY | 2024-05-04 22:32 | XMS_ITS | Clinical Summary ---
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
== END 2024-05-04 22:44 | disposition home or self-care (01) ==
LOC: ANHED 22:31
PROVIDERS: Emergency Provider Registered Nurse
DX: S06.0X9A Concussion with loss of consciousness of unspecified duration, initial encounter (principal); K04.7 Periapical abscess without sinus; E03.9 Hypothyroidism, unspecified; F17.200 Nicotine dependence, unspecified, uncomplicated; W10.9XXA Fall (on) (from) unspecified stairs and steps, initial encounter
CPT/HCPCS: 70450; 70486; 72125; 99284; A9270

== ENCOUNTER 2024-05-16 15:49 | Outpatient (CLI) | payer OTHER, SELFPAY ==
--- NOTE | ~2024-05-16 | XR_ITS ---
HISTORY: FACIAL CONTUSION COMPARISON: Reference is made to a CT examination of facial bones dated 05/04/2024 TECHNIQUE: 3 views of the facial bones were performed. FINDINGS: No acute or subacute fracture. The aerated sinuses are symmetric. Joint spaces are preserved and alignment is normal. Soft tissues are unremarkable without radiopaque foreign body or significant calcification. Age-appropriate mineralization. IMPRESSION: No acute or subacute fracture, as detailed above. Reviewed, dictated and finalized at location A. RANCE ANALYST
--- NOTE | ~2024-05-16 | XR_ITS ---
CHEST RADIOGRAPH, PA AND LATERAL CLINICAL HISTORY: TOBACCO USE . COMPARISON: 12/18/2019 TECHNIQUE: PA and lateral views of the chest. FINDINGS The cardiomediastinal silhouette is unremarkable. The lungs are clear. Visualized osseous structures and soft tissues are unremarkable. IMPRESSION: No focal infiltrate or effusion. Reviewed, dictated and finalized at location A. PROCESSING SUPERVISOR
== END 2024-05-16 15:50 | disposition home or self-care (01) ==
LOC: MICIMG 15:51
PROVIDERS: PCP Emergency Medicine; Visit Provider Emergency Medicine
DX: Z72.0 Tobacco use (principal)
CPT/HCPCS: 70150; 71046

== ENCOUNTER 2024-06-08 07:28 | Outpatient (CLI) | payer OTHER, SELFPAY | END 2024-06-08 07:29 | disposition home or self-care (01) | PROVIDERS: PCP Emergency Medicine; Visit Provider Emergency Medicine | DX: R74.01 Elevation of levels of liver transaminase levels (principal); E03.9 Hypothyroidism, unspecified | CPT/HCPCS: 76536; 76705 ==